=== PATIENT | female | born 1940 | race Two or more races ===

== ENCOUNTER 2018-05-05 08:58 | Day surgery (SDC) | payer OTHER ==
[2018-05-05 09:15] VITALS: BMI 23.4
--- NOTE | 2018-05-05 10:32 | PDOC ---
History of Present Illness - General History Source: Patient Exam Limitations: No Limitations - History of Present Illness Initial Comments: 05/05/18 10:50 The patient is a 78 year old female with a PMH of HTN, CKD on dialysis , CAD s/ p 2 stents sent in to the ER by Dr. Love for a malfunctioning fistula. Patient states she was sent in because the dialysis center on saturday05/03/17 was unable to use her fistula. Patient states that for the past month the dialysis center has been able to use a needle on the fistula and one on the port in the neck, but were unable to do that on saturday. Next dialysis is on saturday. Patient took her htn meds today, but is unable to recall the name. The patient denies chest pain, shortness of breath, headache and dizziness. Denies fever, chills, nausea, vomit, diarrhea and constipation. Denies dysuria, frequency, urgency and hematuria. Allergies: NKA Past surgical history: None reported. Social history: No reported alcohol, drug or cigarette use. <Deana Sandoval - Last Filed: 05/05/18 10:54> <Florence Castellanos - Last Filed: 05/05/18 12:37> - General Chief Complaint: AV shunt bleeding Stated Complaint: FISTULA ISSUES Time Seen by Provider: 05/05/18 09:48 Past History <Deana Sandoval - Last Filed: 05/05/18 10:54> - Past Medical History COPD: No CHF: No Diabetes: Yes HTN: Yes Other medical history: stent - Immunization History Immunization Up to Date: No - Suicide/Smoking/Psychosocial Hx Smoking History: Never smoked Have you smoked in the past 12 months: No Information on smoking cessation initiated: No Hx Alcohol Use: No Drug/Substance Use Hx: No <Florence Castellanos - Last Filed: 05/05/18 12:37> - Past Medical History Allergies/Adverse Reactions: Allergies Allergy/AdvReac Type Severity Reaction Status Date / Time Insulins Allergy Verified 05/05/18 10:41 Review of Systems - Review of Systems Able to Perform ROS?: Yes Comments:: 05/05/18 10:50 ADULT ROS GENERAL/CONSTITUTIONAL: No fever or chills. No weakness. (+) malfunctioning fistula HEAD, EYES, EARS, NOSE AND THROAT: No change in vision. No ear pain or discharge. No sore throat. CARDIOVASCULAR: No chest pain or shortness of breath. RESPIRATORY: No cough, wheezing, or hemoptysis. GASTROINTESTINAL: No nausea, vomiting, diarrhea or constipation. GENITOURINARY: No dysuria, frequency, or change in urination. MUSCULOSKELETAL: No joint or muscle swelling or pain. No neck or back pain. SKIN: No rash NEUROLOGIC: No headache, vertigo, loss of consciousness, or change in strength/ sensation. ENDOCRINE: No increased thirst. No abnormal weight change. HEMATOLOGIC/LYMPHATIC: No anemia, easy bleeding, or history of blood clots. ALLERGIC/IMMUNOLOGIC: No hives or skin allergy. <Deana Sandoval - Last Filed: 05/05/18 10:54> *Physical Exam - Vital Signs Last Vital Signs Temp Pulse Resp BP Pulse Ox 97.8 F 59 L 16 125/50 L 95 05/05/18 09:13 05/05/18 09:13 05/05/18 09:13 05/05/18 09:13 05/05/18 09:13 - Physical Exam Comments: 05/05/18 10:51 ADULT EXAM GENERAL: Awake, alert, and fully oriented, in no acute distress HEAD: No signs of trauma EYES: PERRLA, EOMI, sclera anicteric, conjunctiva clear ENT: Auricles normal inspection, hearing grossly normal, nares patent, oropharynx clear without exudates. Moist mucosa NECK: Normal ROM, supple, no lymphadenopathy, JVD, or masses LUNGS: Breath sounds equal, clear to auscultation bilaterally. No wheezes, and no crackles HEART: Regular rate and rhythm, normal S1 and S2, no murmurs, rubs or gallops ABDOMEN: Soft, nontender, normoactive bowel sounds. No guarding, no rebound. No masses EXTREMITIES: Normal range of motion, no edema. No clubbing or cyanosis. No cords, erythema, or tenderness. (+) palpable thrill over the AV fistula. NEUROLOGICAL: Cranial nerves II through XII grossly intact. Normal speech, normal gait SKIN: Warm, Dry, normal turgor, no rashes or lesions noted. <Deana Sandoval - Last Filed: 05/05/18 10:54> - Vital Signs Last Vital Signs Temp Pulse Resp BP Pulse Ox 97.8 F 59 L 16 125/50 L 95 05/05/18 09:13 05/05/18 09:13 05/05/18 09:13 05/05/18 09:13 05/05/18 09:13 <Florence Castellanos - Last Filed: 05/05/18 12:37> Moderate Sedation - Procedure Monitoring Vital Signs: Procedure Monitoring Vital Signs Temperature 97.8 F 05/05/18 09:13 Pulse Rate 59 L 05/05/18 09:13 Respiratory Rate 16 05/05/18 09:13 Blood Pressure 125/50 L 05/05/18 09:13 O2 Sat by Pulse Oximetry (%) 95 05/05/18 09:13 <Deana Sandoval - Last Filed: 05/05/18 10:54> - Procedure Monitoring Vital Signs: Procedure Monitoring Vital Signs Temperature 97.8 F 05/05/18 09:13 Pulse Rate 59 L 05/05/18 09:13 Respiratory Rate 16 05/05/18 09:13 Blood Pressure 125/50 L 05/05/18 09:13 O2 Sat by Pulse Oximetry (%) 95 05/05/18 09:13 <Florence Castellanos - Last Filed: 05/05/18 12:37> Heart Score/ECG Review - ECG Impressions Comment:: EKG read 10:42- Sinus cheng 59 bpm, +RBBB, +LAFB. <Florence Castellanos - Last Filed: 05/05/18 12:37> ED Treatment Course - LABORATORY CBC & Chemistry Diagram: 05/05/18 10:40 05/05/18 10:40 <Florence Castellanos - Last Filed: 05/05/18 12:37> *DC/Admit/Observation/Transfer - Attestations Scribe Attestion: 05/05/18 10:51 Documentation prepared by Deana Sandoval, acting as medical malpractice paralegal for Florence Castellanos MD. <Deana Sandoval - Last Filed: 05/05/18 10:54> - Discharge Dispostion Decision to Admit order: Yes <Florence Castellanos - Last Filed: 05/05/18 12:37> Diagnosis at time of Disposition: Clotted renal dialysis AV graft Qualifiers: Encounter type: initial encounter Qualified Code(s): T82.868A - Thrombosis due to vascular prosthetic devices, implants and grafts, initial encounter - Discharge Dispostion Condition at time of disposition: Stable - Referrals Referrals: ON STAFF,NOT [Primary Care Provider] - - Patient Instructions - Post Discharge Activity
[2018-05-05 11:24] LABS: BASO % 1.1 % (0-2.0); EOS % 3.5 % (0-4.5); HEMATOCRIT 32.7 % (32.4-45.2); HEMOGLOBIN 11.3 GM/dL (10.7-15.3); MCH 32.7 pg (25.7-33.7); MCHC 34.5 g/dl (32.0-36.0); MEAN CELL VOLUME 94.9 fl (80-96); MEAN PLT VOLUME 6.7 fl (7.5-11.1); NEUT % 65.4 % (42.8-82.8); PLATELET COUNT 295 K/MM3 (134-434); RBC 3.44 M/mm3 (3.60-5.2); RDW 13.6 % (11.6-15.6); WHITE BLOOD COUNT 7.3 K/mm3 (4.0-10.0)
[2018-05-05 11:43] LABS: ALBUMIN 3.5 g/dl (3.4-5.0); ALK PHOS 86 U/L (45-117); ANION GAP 8 MMOL/L (8-16); BILIRUBIN,TOTAL 0.4 mg/dL (0.2-1); BLOOD UREA NITROGEN 35 mg/dL (7-18); CALCIUM 8.5 mg/dL (8.5-10.1); CHLORIDE 102 mmol/L (98-107); CO2 25 mmol/L (21-32); CREATININE 5.3 mg/dL (0.55-1.3); GLUCOSE,RANDOM 101 mg/dL (74-106); POTASSIUM 5.3 mmol/L (3.5-5.1); SGOT/AST 17 U/L (15-37); SGPT/ALT 18 U/L (13-61); SODIUM 134 mmol/L (136-145); TOT PROT 8.8 g/dl (6.4-8.2)
[2018-05-05 12:09] LABS: PROTHROMBIN TIME (PATIENT) 11.8 SEC (9.7-13.0)
--- NOTE | 2018-05-05 12:35 | CONSULT ---
<JanetnusratJoseph - Last Filed: 05/05/18 12:09> - Consultation REQUESTING PROVIDER: CONSULT REQUEST: We have been asked to surgically evaluate this patient for AV fistula malfunction PCP: HISTORY OF PRESENT ILLNESS: 78yo F presents to the ED with complaints of AV fistula malfunction. Pt was able to have HD on Saturday and finish session, but had a lot of pain with dialysis. Pt denies any pain or swelling around the fistula. PMHx: ESRD, HTN, CAD Allergies Allergy/AdvReac Type Severity Reaction Status Date / Time Insulins Allergy Verified 05/05/18 10:41 PHYSICAL EXAM: GENERAL: Awake, alert, and fully oriented, in no acute distress. HEAD: Normal with no signs of trauma. EYES: PERRL, sclera anicteric, conjunctiva clear. NECK: Normal ROM, supple without lymphadenopathy, JVD, or masses. HEART: Regular rate and rhythm. UPPER EXTREMITIES: 2+ pulses, warm, well-perfused. No cyanosis. Cap refill <2 seconds. No peripheral edema. LUE AV fistula with good thrill, with surrounding echymosis. NEUROLOGICAL: Normal speech, gait not observed. PSYCH: Cooperative. Good eye contact. Appropriate mood and affect. SKIN: Warm, dry, normal turgor, no rashes or lesions noted. Vital Signs Temperature 97.8 F 05/05/18 09:13 Pulse Rate 59 L 05/05/18 09:13 Respiratory Rate 16 05/05/18 09:13 Blood Pressure 125/50 L 05/05/18 09:13 O2 Sat by Pulse Oximetry (%) 95 05/05/18 09:13 Lab Results WBC 7.3 K/mm3 (4.0-10.0) 05/05/18 10:40 RBC 3.44 M/mm3 (3.60-5.2) L 05/05/18 10:40 Hgb 11.3 GM/dL (10.7-15.3) 05/05/18 10:40 Hct 32.7 % (32.4-45.2) 05/05/18 10:40 MCV 94.9 fl (80-96) 05/05/18 10:40 MCHC 34.5 g/dl (32.0-36.0) 05/05/18 10:40 RDW 13.6 % (11.6-15.6) 05/05/18 10:40 Plt Count 295 K/MM3 (134-434) 05/05/18 10:40 Sodium 134 mmol/L (136-145) L 05/05/18 10:40 Potassium 5.3 mmol/L (3.5-5.1) H 05/05/18 10:40 Chloride 102 mmol/L (98-107) 05/05/18 10:40 Carbon Dioxide 25 mmol/L (21-32) 05/05/18 10:40 Anion Gap 8 MMOL/L (8-16) 05/05/18 10:40 BUN 35 mg/dL (7-18) H 05/05/18 10:40 Creatinine 5.3 mg/dL (0.55-1.3) H 05/05/18 10:40 Random Glucose 101 mg/dL (74-106) 05/05/18 10:40 Calcium 8.5 mg/dL (8.5-10.1) 05/05/18 10:40 Problem List - Problems (1) Dialysis AV fistula malfunction Assessment/Plan: Plan -Will bring to OR this afternoon for thrombectomy/AV fistula revision -keep NPO Code(s): T82.590A - [facility] COMPL OF SURGICALLY CREATED ARTERIOVENOUS FISTULA, INIT Visit type - Case Type Case Type: ED Admission - Emergency Emergency Visit: Yes Care time: The patient presented to the Emergency Department on the above date and was hospitalized for further evaluation of their emergent condition. - New patient This patient is new to me today: Yes Date on this admission: 05/05/18 <Bong Love - Last Filed: 05/05/18 14:43> - Consultation REQUESTING PROVIDER: CONSULT REQUEST: We have been asked to surgically evaluate this patient for ( specify). PCP: HISTORY OF PRESENT ILLNESS: PMHx: PSHx: Home Medications Medication Instructions Recorded Unobtainable 05/05/18 Allergies Allergy/AdvReac Type Severity Reaction Status Date / Time Insulins Allergy Verified 05/05/18 10:41 REVIEW OF SYSTEMS: CONSTITUTIONAL: Absent: fever, chills, diaphoresis, generalized weakness, malaise, loss of appetite, weight change CARDIOVASCULAR: Absent: chest pain, syncope, palpitations, irregular heart rate, lightheadedness , peripheral edema RESPIRATORY: Absent: cough, shortness of breath, dyspnea with exertion, wheezing, stridor, hemoptysis GASTROINTESTINAL: Absent: abdominal pain, abdominal distension, nausea, vomiting, diarrhea, constipation, melena, hematochezia GENITOURINARY: Absent: dysuria, frequency, urgency, hesitancy, hematuria, flank pain, genital pain MUSCULOSKELETAL: Absent: myalgia, arthralgia, joint swelling, back pain, neck pain SKIN: Absent: rash, itching, pallor HEMATOLOGIC/IMMUNOLOGIC: Absent: easy bleeding, easy bruising, lymphadenopathy NEUROLOGIC: Absent: headache, focal weakness, paresthesias, dizziness, unsteady gait, seizure, mental status changes, bladder or bowel incontinence PSYCHIATRIC: Absent: anxiety, depression, suicidal or homicidal ideation, hallucinations. PHYSICAL EXAM: GENERAL: Awake, alert, and fully oriented, in no acute distress. HEAD: Normal with no signs of trauma. EYES: PERRL, sclera anicteric, conjunctiva clear. NECK: Normal ROM, supple without lymphadenopathy, JVD, or masses. LUNGS: Clear to auscultation bilat anteriorly. No wheezes, and no crackles. No accessory muscle use. HEART: Regular rate and rhythm. No murmurs ABDOMEN: Soft, nontender, not distended, normoactive bowel sounds, no guarding, no rebound, no masses. No organomegaly. MUSCULOSKELETAL: Normal ROM at all joints. No bony deformities or tenderness. No CVA tenderness. UPPER EXTREMITIES: 2+ pulses, warm, well-perfused. No cyanosis. Cap refill <2 seconds. No peripheral edema. LOWER EXTREMITIES: 2+ pulses, warm, well-perfused. No calf tenderness. No peripheral edema. NEUROLOGICAL: Normal speech, gait not observed. PSYCH: Cooperative. Good eye contact. Appropriate mood and affect. SKIN: Warm, dry, normal turgor, no rashes or lesions noted. Vital Signs Temperature 97.9 F 05/05/18 12:00 Pulse Rate 68 05/05/18 12:00 Respiratory Rate 16 05/05/18 12:00 Blood Pressure 111/56 L 05/05/18 12:00 O2 Sat by Pulse Oximetry (%) 18 L 05/05/18 12:00 Lab Results WBC 7.3 K/mm3 (4.0-10.0) 05/05/18 10:40 RBC 3.44 M/mm3 (3.60-5.2) L 05/05/18 10:40 Hgb 11.3 GM/dL (10.7-15.3) 05/05/18 10:40 Hct 32.7 % (32.4-45.2) 05/05/18 10:40 MCV 94.9 fl (80-96) 05/05/18 10:40 MCHC 34.5 g/dl (32.0-36.0) 05/05/18 10:40 RDW 13.6 % (11.6-15.6) 05/05/18 10:40 Plt Count 295 K/MM3 (134-434) 05/05/18 10:40 Sodium 134 mmol/L (136-145) L 05/05/18 10:40 Potassium 5.3 mmol/L (3.5-5.1) H 05/05/18 10:40 Chloride 102 mmol/L (98-107) 05/05/18 10:40 Carbon Dioxide 25 mmol/L (21-32) 05/05/18 10:40 Anion Gap 8 MMOL/L (8-16) 05/05/18 10:40 BUN 35 mg/dL (7-18) H 05/05/18 10:40 Creatinine 5.3 mg/dL (0.55-1.3) H 05/05/18 10:40 Random Glucose 101 mg/dL (74-106) 05/05/18 10:40 Calcium 8.5 mg/dL (8.5-10.1) 05/05/18 10:40 Blood Type O POSITIVE 05/05/18 11:30 Antibody Screen Negative 05/05/18 11:30 INR 1.00 (0.83-1.09) 05/05/18 11:30 I was called Saturday that her AV fistula was not able to be used for dialysis access and that it was clotted. Her Permacath was used. Today there is a good thrill and bruit in the fistula. Duplex shows no clot. The vein is 5.3 mm in diameter. Venogram and venoplasty planned for "malfunction" of AV fistula.
[2018-05-05] MEDS ORDERED: HEPARIN NA (PORCINE) 5,000 UNITS/ML 1ML VIAL ONE (13:25)
[2018-05-05] MEDS ORDERED: LIDOCAINE HCL 1%, 10 MG/ML (20ML VIAL) ONE (13:25)
[2018-05-05] MEDS ORDERED: MIDAZOLAM HCL 2 MG/2 ML SINGLE DOSE VIAL ONE (13:50)
[2018-05-05] MEDS ORDERED: PROPOFOL 20 ML ONE (14:06)
[2018-05-05] MEDS ORDERED: LIDOCAINE HCL 1%, 10 MG/ML (50 mL VIAL) IJ ONE (14:13)
[2018-05-05] MEDS ORDERED: ONDANSETRON 4 MG/2 ML VIAL IVPUSH PRN (14:39)
[2018-05-05] MEDS ORDERED: ACETAMINOPHEN 325 MG TABLET (FP) PO PRN (14:45)
--- NOTE | 2018-05-05 14:45 | OP ---
Operative Note - Note: Operative Date: 05/05/18 Pre-Operative Diagnosis: Malfunction of AV fistula Operation: Venoplasty AV fistula Findings: Patent radial-cephalic fistula. Post-Operative Diagnosis: Same as Pre-op Surgeon: Bong Love Anesthesiologist/ETIQUETTE COACH: Sigrid Baker MD Anesthesia: Fractional
--- NOTE | 2018-05-05 14:46 | EKG ---
Test Reason : Blood Pressure : / mmHG Vent. Rate : 059 BPM Atrial Rate : 059 BPM P-R Int : 158 ms QRS Dur : 138 ms QT Int : 440 ms P-R-T Axes : 064 -71 034 degrees QTc Int : 435 ms SINUS BRADYCARDIA RIGHT BUNDLE BRANCH BLOCK LEFT ANTERIOR FASCICULAR BLOCK BIFASCICULAR BLOCK ABNORMAL ECG NO PREVIOUS ECGS AVAILABLE Confirmed by GREG ANTONY MD ([id number]) on 05/05/2018 2:46:21 PM Referred By: Confirmed By:GREG ANTONY MD
[2018-05-05 15:54] VITALS: TEMP 97.9
[2018-05-05 16:51] VITALS: BP 152/60; PULSE 66
--- NOTE | 2018-05-05 20:38 | OP ---
DATE OF OPERATION: 05/05/2018 PROCEDURE: Venoplasty of left arm arteriovenous fistula. PREOPERATIVE DIAGNOSIS: Malfunction arteriovenous fistula. POSTOPERATIVE DIAGNOSIS: Malfunction arteriovenous fistula. ANESTHESIA: Fractional. ANESTHESIOLOGIST: Sigrid Baker M.D. OPERATIVE FINDINGS: The 78-year-old woman with end-stage renal disease on hemodialysis was reported to have a thrombosed left arm AV fistula at dialysis 2 days prior to admission. She was able to receive her treatment through her PermCath. On admission today through the emergency room, the fistula was found to be patent with a diameter of approximately 5.5 mm. Plan for venogram and possible venoplasty explained to the patient. OPERATIVE PROCEDURE: Following routine patient identification with side and site verification, intravenous sedation was established. The left arm was prepped with ChloraPrep. Timeout was performed. Using real time duplex imaging, the distal left AV fistula was identified, found to be patent. 1% lidocaine was infiltrated in the skin over the vein, and the vein was cannulated with a micropuncture needle under ultrasound guidance. A fine wire was passed proximally and the needle was exchanged for a 5 [place] catheter. The catheter was exchanged over a wire for a 5 [place] sheath. Heparin 3000 units was administered intravenously. Venogram of the left arm from the wrist to the chest was then performed. There was no obvious stenosis. The vein in the forearm was less than 6 mm, so a 6 mm balloon angioplasty was performed. The sheath was then removed after a completion venogram showed no new changes. The access site was closed with a mattress suture of 4-0 nylon, and the sterile dressing was applied, and the patient was taken to the recovery room in stable condition. MARGOT FRANCISCO M.D. [id number]
== END 2018-05-05 16:51 | disposition home or self-care (01) ==
LOC: JER 08:58 → JASUSAT 12:35
PROVIDERS: ATTEND Surgery
PROC: 05773ZZ Dilation of Right Axillary Vein, Percutaneous Approach (ICD-10-PCS; principal; 2018-05-05 13:00)
DX: T82.898A Other specified complication of vascular prosthetic devices, implants and grafts, initial encounter (principal); I12.0 Hypertensive chronic kidney disease with stage 5 chronic kidney disease or end stage renal disease; E13.22 Other specified diabetes mellitus with diabetic chronic kidney disease; N18.6 End stage renal disease; Z99.2 Dependence on renal dialysis
CPT/HCPCS: 36415; 80053; 85025; 85610; 86850; 86900; 86901; 93005; 93010; 94760; 99283-25; J1644